=== PATIENT | male | born 1965 | race Caucasian/White ===

== ENCOUNTER → 2016-07-22 | Outpatient (CLI) | payer OTHER ==
[2016-05-30 17:59] VITALS: BP 147/82
[~2016-07-22] MED LIST: AMOX875T PO; BENZ100C PO; BUDE10.2 IH; FLUV50TA2 PO; IOHEXOL 300 MG/ML 75 ML VIAL IV ONE; LEVO500T38 PO; PANT20TA2 PO; PRAV10TA2 PO; PRED20TA PO; PRED50TA PO; PROAIR RESPICL90 MCG IH; PROM118S2 PO; TRAZ50TA15 PO
--- NOTE | 2016-07-22 11:01 | RAD ---
CT scan of the chest with contrast 07/22/2016 Clinical history: Cough for 3 weeks. Technique: After the intravenous administration of 75 cc of Omnipaque 300, contiguous, 5 mm axial sections were obtained through the chest and upper abdomen. One or more of the following individualized dose reduction techniques were utilized for this study: 1. Automated exposure control. 2. Adjustment of the mA and/or kV according to patient size. 3. Use of iterative reconstruction technique. Findings: Comparison is made to a CT scan of the abdomen dated 06/17/2014. Additional comparison is made to a portable chest radiograph dated 05/30/2016. The heart and thoracic aorta are within normal limits. No hilar, mediastinal or axillary lymphadenopathy is seen. A 1.7 cm bulla/bleb is seen involving the posterior aspect of the right lower lobe. No acute pulmonary infiltrate is seen. No pleural effusion or pneumothorax is noted. Images through the upper abdomen demonstrate low-attenuation lesions involving the left lobe of the liver consistent with hepatic cysts. These measure 9 mm to 1.6 cm in size. They have not significantly changed. Minimal degenerative changes are seen involving the thoracic spine. Impression: No acute abnormality is seen.
== END | disposition home or self-care (01) ==
LOC: CT 08:54
PROVIDERS: ATTEND Physician Assistant Medical
DX: R05 Cough (principal); R61 Generalized hyperhidrosis; F17.210 Nicotine dependence, cigarettes, uncomplicated; M47.894 Other spondylosis, thoracic region
CPT/HCPCS: 71260; Q9967

== ENCOUNTER → 2016-11-06 | Outpatient (CLI) | payer OTHER ==
[2016-05-30 17:59] VITALS: BP 147/82
[~2016-11-06] MED LIST changes: -IOHEXOL 300 MG/ML 75 ML VIAL IV ONE; -LEVO500T38 PO; +LEVO500T59 PO
--- NOTE | 2016-11-06 16:37 | KCIC ---
CHEST PA LATERAL History: Chest pain for one week, COPD Comparison: April 16, 2016 Findings: There is no infiltrate, pneumothorax, or effusion. The cardiac silhouette is within normal limits in size. The trachea is in the midline. No acute osseous abnormality is identified. There is lung hyperexpansion. Impression: 1. There is no evidence of acute cardiopulmonary disease. Electronically signed by: Saleem Kennedy MD (11/06/2016 4:34 PM)
== END | disposition home or self-care (01) ==
LOC: KCIC 15:58
PROVIDERS: ATTEND Physician Assistant Medical
DX: J44.9 Chronic obstructive pulmonary disease, unspecified (principal)
CPT/HCPCS: 71020